=== PATIENT | male | born 1985 | race Caucasian/White ===

== ENCOUNTER 2017-09-16 16:57 | Emergency (ER) | payer SELFPAY ==
[2017-09-16] MEDS ORDERED: ORPHENADRINE CITRATE 60MG/2ML VIAL IM ONE (17:47)
[2017-09-16] MEDS ORDERED: KETOROLAC 60 MG/2 ML VIAL IM STA (17:47)
--- NOTE | 2017-09-16 17:47 | Emergency Department Record ---
History of Present Illness - General Chief Complaint: Back Pain/Injury Stated Complaint: LOWER BACK PAIN Time Seen by Provider: 09/16/17 17:40 Source: Patient, RN notes reviewed - History of Present Illness Initial Comments: sharp pain in the left L2-5 area of the back with radiation into the left leg and pain is worse with motion and this pain started when coughing this AM history of back pain. No urination problems and no BM problems and able to stand on toes equally. standing flexion to 10 degrees but flexes to 90 degrees to sit down. MD Complaint: Back pain Onset/Timin -: Hour(s) Similar Symptoms Previously: Yes Place: Home Severity scale (1-10): 7 Quality: Sharp Consistency: Constant Improves With: Sitting upright Worsens With: Other Context: Other Associated Symptoms: Denies other symptoms Treatments Prior to Arrival: Cold therapy, Heat therapy - Related Data Home Medications Medication Instructions Recorded Confirmed Last Taken Lansoprazole [Prevacid] 30 mg PO DAILY 09/16/17 09/16/17 09/16/17 Levothyroxine Sodium [Synthroid] 137 mcg PO DAILY 09/16/17 09/16/17 09/16/17 Previous Rx's Medication Instructions Recorded Cyclobenzaprine HCl [Flexeril] 10 mg PO TID #30 tablet 09/16/17 Hydrocodone/Acetaminophen [[place] 1 tab PO Q6H PRN #14 tab 09/16/17 5mg/325mg] Naproxen [Naprosyn] 500 mg PO Q12H #20 tab. 09/16/17 Allergies Allergy/AdvReac Type Severity Reaction Status Date / Time silver sulfadiazine Allergy RASH Verified 09/16/17 17:10 [From Rina] Travel Screening - Travel/Exposure Within Last 30 Days Have you traveled within the last 30 days?: No - Travel/Exposure Within Last Year Have you traveled outside the [place] in the last year?: No - Additonal Travel Details Have you been exposed to anyone with a communicable illness?: No - Travel Symptoms Symptom Screening: None Review of Systems Reviewed: No additional complaints except as noted below Constitutional: Reports: As per HPI. Denies: Chills, Fever, Malaise, Night sweats, Weakness, Weight change Eyes: Reports: As per HPI. Denies: Eye discharge, Eye pain, Photophobia, Vision change ENT: Reports: As per HPI. Denies: Congestion, Dental pain, Ear pain, Epistaxis , Hearing loss, Throat pain Respiratory: Reports: As per HPI. Denies: Cough, Dyspnea, Hemoptysis, Stridor, Wheezes Cardiovascular: Reports: As per HPI. Denies: Arrhythmia, Chest pain, Dyspnea on exertion, Edema, Murmurs, Orthopnea, Palpitations, Paroxysmal nocturnal dyspnea, Rheumatic Fever, Syncope Endocrine: Reports: As per HPI. Denies: Fatigue, Heat or cold intolerance, Polydipsia, Polyuria Gastrointestinal: Reports: As per HPI. Denies: Abdominal pain, Constipation, Diarrhea, Hematemesis, Hematochezia, Melena, Nausea, Vomiting Genitourinary: Reports: As per HPI. Denies: Dysuria, Frequency, Hematuria, Incontinence, Retention, Testicular pain, Testicular mass, Urgency Musculoskeletal: Reports: As per HPI, Back pain. Denies: Arthralgia, Gout, Joint swelling, Myalgia, Neck pain Skin: Reports: As per HPI. Denies: Bruising, Change in color, Change in hair/ nails, Lesions, Pruritus, Rash Neurological: Reports: As per HPI. Denies: Abnormal gait, Confusion, Headache, Numbness, Paresthesias, Seizure, Tingling, Tremors, Vertigo, Weakness Psychiatric: Reports: As per HPI. Denies: Anxiety, Auditory hallucinations, Depression, Homicidal thoughts, Suicidal thoughts, Visual hallucinations Hematological/Lymphatic: Reports: As per HPI. Denies: Anemia, Blood Clots, Easy bleeding, Easy bruising, Swollen glands Past Medical History - SOCIAL HISTORY Smoking Status: Current every day smoker Alcohol Use: None Drug Use Detail:: Marijuana - RESPIRATORY Hx Respiratory Disorders: No - CARDIOVASCULAR Hx Cardio Disorders: Yes Hx Hypertension: Yes - NEURO Hx Neuro Disorders: No - GI Hx GI Disorders: Yes Hx Reflux: Yes - Hx Genitourinary Disorders: No - ENDOCRINE Hx Endocrine Disorders: Yes Hx Thyroid Disease: Yes - MUSCULOSKELETAL Hx Musculoskeletal Disorders: Yes Hx Arthritis: Yes - PSYCH Hx Psych Problems: No - HEMATOLOGY/ONCOLOGY Hx Hematology/Oncology Disorders: No Family Medical History Any Significant Family History?: Yes Hx Diabetes: Father, Mother Physical Exam - General General Appearance: Alert, Oriented x3, Cooperative, No acute distress - Head Head exam: Normal inspection - Eye Eye exam: Normal appearance, PERRL Pupils: Normal accommodation - ENT ENT exam: Normal exam, Mucous membranes moist, Normal external ear exam, Normal orophraynx, TM's normal bilaterally Ear exam: Normal external inspection. negative: External canal tenderness Nasal Exam: Normal inspection. negative: Discharge, Sinus tenderness Mouth exam: Normal external inspection, Tongue normal Teeth exam: Normal inspection. negative: Dental caries Throat exam: Normal inspection. negative: Tonsillar erythema, Tonsillar exudate - Neck Neck exam: Normal inspection, Full ROM. negative: Tenderness - Respiratory Respiratory exam: Normal lung sounds bilaterally. negative: Respiratory distress - Cardiovascular Cardiovascular Exam: Regular rate, Normal rhythm, Normal heart sounds - GI/Abdominal GI/Abdominal exam: Soft, Normal bowel sounds. negative: Tenderness - Rectal Rectal exam: Deferred - exam: Deferred - Extremities Extremities exam: Normal inspection, Full ROM, Normal capillary refill. negative: Tenderness - Back Back exam: Reports: Normal inspection, Full ROM, Muscle spasm, Tenderness (left side L2 to L5). Denies: Rash noted - Neurological Neurological exam: Alert, Normal gait, Oriented X3, Reflexes normal - Psychiatric Psychiatric exam: Normal affect, Normal mood - Skin Skin exam: Dry, Intact, Normal color, Warm Course Vital Signs 09/16/17 17:14 Temperature 98.3 F Pulse Rate 68 Respiratory 18 Rate Blood Pressure 116/74 Pulse Ox 97 - Reevaluation(s) Reevaluation #1: improving with the shots patient offered another shot and they wanted pills to go home. 09/16/17 18:48 09/16/17 18:48 Disposition Clinical Impression: Lumbar strain Qualifiers: Encounter type: initial encounter Qualified Code(s): S39.012A - Strain of muscle, fascia and tendon of lower back, initial encounter Disposition: Home, Self-Care Condition: (2) Stable Instructions: Low Back Strain (ED) Additional Instructions: heat to back three times a day follow up with in 5 days Prescriptions: Cyclobenzaprine HCl [Flexeril] 10 mg PO TID #30 tablet Hydrocodone/Acetaminophen [[place] 5mg/325mg] 1 tab PO Q6H PRN #14 tab PRN Reason: Pain - General Naproxen [Naprosyn] 500 mg PO Q12H #20 tab.dr Forms: Patient Portal Access Time of Disposition: 18:52 Quality - Quality Measures Quality Measures: N/A - Blood Pressure Screening Does Patient Have Any of the Following: No Blood Pressure Classification: Normal BP Reading Systolic Measurement: 116 Diastolic Measurement: 74 Screening for High Blood Pressure: < Normal BP, F/U Not Required > [[id number]]
[2017-09-16] MEDS ORDERED: HYDROCODONE/APAP 5/325MG TABLET PO ONE (18:51)
[2017-09-16] MEDS ORDERED: CYCLOBENZAPRINE 10MG TABLET PO ONE (18:51)
[2017-09-16] MEDS ORDERED: NAPROXEN 250 MG TABLET PO ONE (18:51)
== END 2017-09-16 19:07 | disposition home or self-care (01) ==
LOC: ER 16:57
DX: S39.012A Strain of muscle, fascia and tendon of lower back, initial encounter (principal); M79.605 Pain in left leg; R05 Cough; X50.0XXA Overexertion from strenuous movement or load, initial encounter; Y92.009 Unspecified place in unspecified non-institutional (private) residence as the place of occurrence of the external cause
CPT/HCPCS: 96372; 99283; J1885; J2360